=== PATIENT | female | born 1955 | race Caucasian/White ===

== ENCOUNTER → 2017-10-10 18:08 | Outpatient (REF) | payer OTHER, SELFPAY | LOC: LAB 18:08 | PROVIDERS: Visit Provider Otolaryngology | DX: J32.8 Other chronic sinusitis (principal); R51 Headache; F17.210 Nicotine dependence, cigarettes, uncomplicated | CPT/HCPCS: 87070; 87077; 87147; 87186 ==

== ENCOUNTER → 2018-04-25 17:09 | Outpatient (CLI) | payer OTHER, SELFPAY ==
--- NOTE | 2018-04-25 | DI.MRI.S_ITS ---
PROCEDURE: MR SHOULDER LT WO CON INDICATIONS: ACUTE PAIN OF LEFT SHOULDER TECHNIQUE: Noncontrast oblique coronal T2 fast spin echo with fat saturation, oblique sagittal T1 spin echo and T2 fast spin echo with fat saturation, axial T1 spin echo and T2 fast spin echo with fat saturation through the shoulder. COMPARISON: None. FINDINGS: Image quality: Excellent. Rotator cuff: Partial-thickness articular sided tear of the supraspinatus tendon. No full-thickness defect identified. Infraspinatus and teres minor tendons appear intact. Subscapularis tendon appears grossly intact. No atrophy of the rotator cuff musculature. Bones and bursae: No bone marrow contusions or fractures. Severe hypertrophic acromioclavicular joint degeneration. The acromion demonstrates conventional anatomy, without an os acromiale. Large amount of subacromial-subdeltoid bursal fluid is present. Capsule and soft tissues: Somewhat blunted appearance of the posterior labrum although could be chronic degeneration. No definite posterior subluxation of humeral head relative to the glenoid. The long head of the biceps tendon demonstrates normal location and morphology. The rotator interval appears normal, without fibrosis. The coracohumeral ligament is normal in thickness. IMPRESSION: Partial-thickness articular sided tear of the supraspinatus tendon. Severe subacromial/subdeltoid bursitis. Severe hypertrophic AC joint degeneration Dictated by: Hollis James M.D. on 04/26/2018 at 9:25 Approved by: Hollis James M.D. on 04/26/2018 at 9:30
== END ==
PROVIDERS: Visit Provider Physician Assistant
DX: M25.512 Pain in left shoulder (principal); M75.112 Incomplete rotator cuff tear or rupture of left shoulder, not specified as traumatic; M75.52 Bursitis of left shoulder; M19.012 Primary osteoarthritis, left shoulder
CPT/HCPCS: 73221